=== PATIENT | male | born 1970 | race Caucasian/White ===

== ENCOUNTER 2019-09-15 02:47 | Inpatient (IN) | payer BC ==
[~2019-09-15] VITALS: Ht 182.9 cm; Wt 157.4 kg
[2019-09-15] VITALS (7 sets, daily range): BP systolic 85–123; BP diastolic 42–74; Ht 182.9 cm; Wt 157.4 kg
--- NOTE | 2019-09-15 03:00 | NUR ---
PT BROUGHT TO ED BY [facility] WITH C/O RECTAL BLEEDING SINCE 1299. PER MEDICS, PT HAD A COLONOSCOPY LAST THURSDAY WITH REMOVAL OF 5 POLYPS (1 LARGE ONE). AROUND 1300 TODAY, PT EXPERIENCED A BOWEL MOVEMENT THAT HAD BRIGHT RED BLOOD IN IT. PT DENIES RECTAL BLEEDING SINCE THE PROCEDURE BUT STATES THAT THIS AM HE DID HAVE TO STRAIN A LITTLE BIT BUT HAD A NORMAL BOWEL MOVEMENT. PT STATES THAT THROUGHOUT THE DAY HE EXPERIENCED APPROX 6 EPISODES OF DIARRHEA WITH BRIGHT RED BLOOD. PT STATES THAT THIS EVENING HE HAD A SYNCOPAL EPISODE. PT DENIES TAKING BLOOD THINNERS. PT RATES PAIN AT 2/10 AT THIS TIME. PT PLACED ON FULL CM, VITAL SIGNS STABLE. PT DENIES FEVER TODAY. PT AOX4, RESP EVEN AND UNLABORED, NO ACUTE DISTRESS NOTED.
--- NOTE | 2019-09-15 03:11 | NUR ---
DR VICTORIA AT BEDSIDE FOR MSE.
[2019-09-15 03:51] LABS: BASOPHIL % 0.2 % (0-2); PLATELET COUNT 224 x10^3mcL (130-400); RED CELL DISTRIBUTION WIDTH 13.3 % (11.5-14.5)
[2019-09-15 03:52] LABS: CALCIUM 7.9 mg/dL (8.5-10.1); CARBON DIOXIDE 28.5 mmol/L (21-32); CHLORIDE SERUM 106 mmol/L (98-107); GFR1 > 60 mL/min; GLUCOSE SERUM 153 mg/dL (74-106); POTASSIUM SERUM 3.8 mmol/L (3.5-5.1); SODIUM SERUM 140 mmol/L (136-145)
[2019-09-15 03:57] LABS: ALKALINE PHOSPHATASE 69 U/L (46-116); ALT/SGPT 40 U/L (16-63); AST/SGOT 18 U/L (15-37); BILIRUBIN TOTAL 0.3 mg/dL (0.20-1.00)
[2019-09-15 04:10] LABS: ALBUMIN 3.1 g/dL (3.4-5.0); TOTAL PROTEIN, SERUM 5.5 g/dL (6.4-8.2)
--- NOTE | 2019-09-15 04:15 | NUR ---
ASSISTED BY [facility] EMT TO PLACE PATIENT ON BEDSIDE COMMODE. LARGE AMOUNT OF BLOODY JELLY LIKE FECAL MATTER NOTED IN COMMODE. PT TOLERATED WELL. WHEN STANDING UP PT STATES "I FEEL LIKE I NEED TO LAY DOWN". PT ASSISTED BACK INTO BED. PT LAYING IN LEFT SIDE LAYING POSITION AND STATES "OH ITS GOING TO COME OUT". PT BEGAN DEFACATING A LARGE AMOUNT OF DARK RED JELLY LIKE FECAL MATTER. PT CLEANED AND PLACED IN CLEAN GOWN, CLEAN CHUCKS PLACED UNDER PT. PRIMARY RN AWARE.
[2019-09-15] MEDS ORDERED: GLUCOTROL10 MG PO (05:12)
[2019-09-15] MEDS ORDERED: LIPI20 PO (05:13)
[2019-09-15] MEDS ORDERED: GLIPIZIDE10 M2 PO (05:13)
[2019-09-15] MEDS ORDERED: METOPROLOL TART25 M1 PO (05:14)
[2019-09-15] MEDS ORDERED: MELOXICAM15 M1 PO (05:15)
[2019-09-15] MEDS ORDERED: FENOFIBRATE MI200 MG PO (05:15)
[2019-09-15] MEDS ORDERED: ESCITALOPRAM20 M1 PO (05:16)
[2019-09-15] MEDS ORDERED: GLYBURIDE5 MG PO (05:17)
[2019-09-15] MEDS ORDERED: METFORMIN HCL1000 MG PO (05:17)
[2019-09-15] MEDS ORDERED: RESTORIL15 MG PO (05:18)
[2019-09-15] MEDS ORDERED: HCTZ/LISINOPRIL1 TA2 PO (05:18)
[2019-09-15] MEDS ORDERED: NOR10 PO (05:19)
--- NOTE | 2019-09-15 05:59 | NUR ---
REPORT GIVEN TO SANDIP LANG TELE
--- NOTE | 2019-09-15 06:36 | NUR ---
PT TRANSFERRED TO TELE FLOOR ACCOMPANIED BY NURSE AND EMT. PT CONNECT TO MONITOR DURING TRANSFER. NO S/S OF DISTRESS. RESP E/U. IV SITE PATENT, NO S/S OF INFILTRATION.
--- NOTE | 2019-09-15 07:05 | NUR ---
RECIEVED PT FROM ED. PT CALM IN BED. NO DISTRESS NOTED. AT BEDSIDE. COMPLAIN OF BLOODY STOOL AFTER HE HAD HIS COLONOSCOPY DONE THURSDAY. HE STATES HE HAD 7 EPISODES AT HOME AND ONE SYNCOPE EPISODE AT HOME. WITNESS THIS EVENT AND STATED HE JUST FEEL BACK AND WAS UNCOUCIOUS FOR A COUPLE OF SECONDS. SKIN WARM AND INTACT. BED IS AT LOWEST SETTING. CALL LIGHT WITHIN REACH. WILL ENDORSE TO AM NURSE.
--- NOTE | 2019-09-15 07:30 | NUR ---
THE PATIENT HAS HAD TWO LARGE BLOODY BOWEL MOVEMENTS. PATIENT APPEARS TO BE ANXIOUS, DIZZY, PALE. PRESENT. WILL CALL .
--- NOTE | 2019-09-15 07:30 | NUR ---
A&OX4, FOLLOWS COMMANDS AND COOPERATES WELL. TELE #23, NSR. PERIPHERAL PULSES ARE PALPABLE, W/ NO SIGNS OF EDEMA. PATIENT STATES DIZZINESS WHILE STANDING AND WALKING TO BEDSIDE COMMODE. PATIENT MOST RECENT BLOOD PRESSURE IS 85/42. NOTIFIED MD OF PATIENT STATUS AND LOW BP. REFER TO OTHER NOTE FOR SPECIFIC MD ORDERS. ON RA, LUNG SOUNDS CTA BILATERALLY, 96%. NORMOACTIVE BOWEL SOUNDS, BUT FREQUENT BOWEL MOVEMENTS W/ BLOODY DIARRHEA W/ PURULENT ODOR. COLOR OF STOOL IS DARK RED. VOIDS WELL. PATIENT AMBULATES WITH MINIMAL ASSISTANCE TO BEDSIDE COMMODE DUE TO DIZZINESS. PATIENT IV SITE IS CDI. FAMILY IS PRESENT. WILL CONTINUE TO ADDRESS ANY CONCERNS AND QUESTIONS NEEDED.
--- NOTE | 2019-09-15 08:30 | NUR ---
SPOKE TO DR. ROWLAND ABOUT CURRENT PATIENT BP 85/42, FREQUENT BLOODY STOOL. WE CALLED FOR ORDERS. MD ORDERED NS BOLUS 500 ML, D5NS 100 ML/HR, ORDER SET PRNS MEDICATIONS, AND GI CONSULT DR. MURRAY.
[2019-09-15 08:46] LABS: BASOPHIL % 0.2 % (0-2); PLATELET COUNT 206 x10^3mcL (130-400)
--- NOTE | 2019-09-15 09:30 | NUR ---
DR. ROWLAND VISITED THE PATIENT AND TOLD THE PATIENT AND HIS FAMILY THE PLAN FOR HOSPITALIZATION. THE PLAN IS TO MONITOR CBC LEVELS AND REFER TO GI CONSULT DR. MURRAY FOR FURTHER ORDERS.
--- NOTE | 2019-09-15 09:43 | NUR ---
NS BOLUS 500 ML IS CURRENTLY INFUSING PER MD ORDER. WILL CHECK BP POST-BOLUS INFUSION.
--- NOTE | 2019-09-15 11:00 | NUR ---
0829: PATIENT BLOOD PRESSURE IS 85/42. MD ORDERED NS BOLUS 500 ML, AND D5NS 100 ML/HR. 0943: NS BOLUS 500 ML IS CURRENTLY INFUSING. WILL CONTINUE TO MONITOIR BLOOD PRESSURE POST-BOLUS INFUSION. 1100. BOLUS INFUSION COMPLETED. BP IS RETAKEN: 98/50.
--- NOTE | 2019-09-15 12:45 | NUR ---
PATIENT RECEIVED FLU SHOT VIA IM ON THE RIGHT SHOULDER. NO SIGNS OF ABNORMAL BLEEDING. SKIN IS CDI.
--- NOTE | 2019-09-15 18:10 | NUR ---
RECEIVED REPORT FROM SUNDAR LANG. ALL QUESTIONS AND CONCERNS ADDRESSED.
--- NOTE | 2019-09-15 18:25 | NUR ---
PATIENT RECEIVED ON UNIT ACCOPANIED BY KIRILL RN AND SUNDAR RN. PATIENT REMOVED FROM PORTABLE DIESEL BUS MECHANIC AND PLACED ON ICU DIESEL BUS MECHANIC #1. PATIENT ALERT AND ORIENTED. ABLE TO MAKE NEEDS KNOWN. PATIENT PLACED ON ICU DIESEL BUS MECHANIC WITH VITALS STABLE AT THIS TIME. BP 122/74, HR 107, RR 12, SP02 97% ON ROOM AIR. PATIENT DENIES ANY PAIN OR DISCOMFORT. AWAITING DR MURRAY AND [employer] ELECTRODES SUPERVISOR FOR COLONOSCOPY.
--- NOTE | 2019-09-15 18:39 | NUR ---
DR MURRAY CAME TO SEE THE PATIENT. CONSENT FOR COLONOSCOPY OBTAINED PER HIS ORDER. CALLED RODNEY LANG AND GAVE REPORT, HE WENT TO ICU BED # 1 FOR COLONOSCOPY TO BE DONE THERE TONIGHT. HE IS AAO TIMES 4. NO C/O PAIN. NO SOB. IV SITE TO LEFT HAND PATENT, CDI. COOPERATIVE. FAMILY PRESENT, SUPPORTIVE. HE HAD A TOTAL OF 5 BLOODY FOUL SMELLING STOOLS, 3 LARGE ONES, AND 2 SMALL ONES, ALL LOOSE.
--- NOTE | 2019-09-15 18:50 | NUR ---
NURSING CO-SIGN THE DOCUMENTATION ENTERED BY THE IP HAS BEEN REVIEWED. REVIEWED/CO-SIGNED BY: Cori Pollock DOCUMENTATION DONE BY: SUNDAR GILES RN
--- NOTE | 2019-09-15 19:15 | NUR ---
CORINE ALVAREZ (TECHNOLOGY INFUSION SPECIALIST), RODNEY AT BEDSIDE FOR COLONOSCOPY. TIME OUT TAKEN WITH ALL PARTIES IN AGREEMENT. CONSENT IN CHART. PATIENT ADMINISTERED FENTANYL 25 MCG IVP AND VERSED 2MCG FOR SEDATION. CARDIAC MONITORING SET EVERY 2 MIN AND 30 SEC. PATIENT PLACED ON BIPAP BY YVON PALOMINO. VS STABLE BP 128/63, HR 100, RR 10, SPO2 100%.
--- NOTE | 2019-09-15 19:15 | NUR ---
DR MURRAY, [facility], MYSELF AT BEDSIDE FOR COLONOSCOPY. TIME OUT TAKEN WITH ALL PATIENTS IN AGREEMENT. CONSENT IN CHART. PATIENT ADMINISTERED FENTANYL 25 MCG IVP AND VERSED 2MCG FOR SEDATION. CARDIAC MONITORING SET FOR Q 2.5 MINUTES. PATIENT PLACED ON BIPAP BY YVON PALOMINO. PATIENT IN LEFT SIDE LYING POSITION. VITALS BP 128/63, HR 100, RR 10, SPO2 100%.
--- NOTE | 2019-09-15 19:24 | NUR ---
PLACED PATIENT ONTO BIPAP FOR PROCEDURE. SETTINGS: 11/03 RATE 14 FIO2 40%. SPO2 100%.
--- NOTE | 2019-09-15 19:45 | NUR ---
MYSELF, RODNEY BOWER RN, DR. MURRAY, AND DR. ALDANA, ALL IN AGREEMENT THAT PATIENT IS OKAY TO TRANSFER BACK UP TO TELEMETRY AFTER COLONOSCOPY. WILL FOLLOW THROUGH ONCE PROCEDURE IS COMPLETED.
--- NOTE | 2019-09-15 20:50 | NUR ---
COLONOSCOPY COMPLETED BY DR MURRAY. DR MURRAY FOUND 1 PREVIOUS POLYP SITE WHICH WAS BLEEDING. SITE WAS BANDED BY DR MURRAY WITH EPI APPLIED. PATIENT RECEIVED 150 FENTANYL IVP AND 5 MG VERSED IVP. PATIENT TOLERATED PROCEDURE WITH NO S/S OF DISTRESS. PATIENT AWAKE AND ALERT WITH VITALS BP 119/71, HR 114, RR 12, SPO2 98%.
--- NOTE | 2019-09-15 21:06 | NUR ---
REPORT GIVEN TO SAADIA LANG. ALL QUESTIONS AND CONCERNS ADDRESSED. PATIENT TO BE RETURNED TO TELEMETRY 242B. FAMILY AT BEDSIDE WITH PATIENT AT THIS TIME.
--- NOTE | 2019-09-15 21:45 | NUR ---
RECIEVED PATIENT AT THIS TIME FROM COLONOSCOPY. PER REPORT FROM RODNEY LANG, BRETT PATIENT HAD ONE ACTIVE SOURCE OF BLEEDING IN COLON THAT WAS BANDED. NO ACTIVE BLEEDING FROM RECTUM NOTED. PATIENT DENIES PAIN. NO SOB ON RA SATTING 95%. CPAP SET UP FOR SLEEP APNEA. IV TO RH INFUSING WITHOUT ERYTHEMA OR INFILTRATION. ON TELE 23, NSR 84. PATIENT ORIENTED TO ROOM AND USE OF CALL LIGHT. BEDSIDE TABLE AND CALL LIGHT WITHIN REACH.
--- NOTE | 2019-09-15 21:53 | NUR ---
PT TAKEN UPSTAIRS TO TELE 242 B. NURSE SAADIA MADE AWARE. PT TAKEN ON BED BY FRANCIS, MANUFACTURING SPECIALIST, AND PRECIOUS LYONS. PT CONNECTED TO SPIRITUAL MINISTER. RT MADE AWARE OF TRANSFER, TO BE READY TO PLACE PATIENT ON BIPAP.
--- NOTE | 2019-09-15 22:00 | NUR ---
PATIENT TRANSFERED FROM ICU 1 TO ROOM 242B WITH NO INCIDENT. PLACED ON CPAP FOR THE NIGHT OF CPAP 5 FIO2 28%.
--- NOTE | 2019-09-15 22:50 | NUR ---
PATIENT'S HEMATOCRIT IS 21. WILL TRANSUSE 1 UNIT OF PRBS AFTER IRON IS DONE TRANSFUSING.
--- NOTE | 2019-09-16 00:09 | NUR ---
IRON INFUSION IS COMPLETE. PATIENT PRE-MEDICATED WITH BENADRYL AND TYLENOL FOR BLOOD TRANSFUSION AT THSI TIME.
--- NOTE | 2019-09-16 00:40 | NUR ---
BLOOD TRANSFUSION INITIATED 15 MINS AGO AT 0025. PRE AND POST VITALS TAKEN, BOTH WNL, NO SYMPTOMS OR SIGNS OF TRANSFUSION REACTION. PRBC RUNNING AT 100 ML/HR.
[2019-09-16 05:05] VITALS: BP 152/83
--- NOTE | 2019-09-16 05:29 | NUR ---
PATIENT OFF BIPAP WHEN ENTERED ROOM. STILL SLEEPING. SPO2 ON ROOM AIR 95.
--- NOTE | 2019-09-16 06:26 | NUR ---
PATIENT REPORTED SLEEPING WELL. DENIES PAIN. NO SOB ON RA. IV TO LH INFUSING WITHOUT ERYTHEMA OR INFILTRATION. CALL LIGHT AND BEDSIDE TABLE WITHIN REACH. NO BLOODY STOOLS OR RECTAL BLEEDING THIS SHIFT. WILL ENDORSE CARE TO DAYSHIFT NURSE.
--- NOTE | 2019-09-16 07:00 | NUR ---
RECEIVED PT FROM AIR FORCE PILOT NURSE. PT RESTING INBED, AOX4, RESP E/U ON RA. DENIES DIZZINESS, ABD PAIN OR N/V, NO ACUTE DISTRESS NOTED. ON TELE 23 SHOWING NSR, HR: 66. IV TO LH W/ NO SIGNS OF INFILTRATION, IVF INFUSING WELL. BED IN LOWEST POSITION AND CALL LIGHT WITHIN REACH. WILL CONTINUE TO MONITOR.
[2019-09-16 07:35] VITALS: BP 131/53
[2019-09-16 09:38] LABS: BASOPHIL % 0.3 % (0-2); PLATELET COUNT 211 x10^3mcL (130-400)
[2019-09-16 09:42] LABS: RED CELL DISTRIBUTION WIDTH 14.7 % (11.5-14.5)
[2019-09-16 09:45] LABS: CALCIUM 7.7 mg/dL (8.5-10.1); CARBON DIOXIDE 26.7 mmol/L (21-32); CHLORIDE SERUM 106 mmol/L (98-107); GFR1 > 60 mL/min; GLUCOSE SERUM 174 mg/dL (74-106); POTASSIUM SERUM 3.3 mmol/L (3.5-5.1); SODIUM SERUM 142 mmol/L (136-145)
--- NOTE | 2019-09-16 12:18 | NUR ---
PT RESTING IN BED. AOX4, RESP E/U ON RA. DENIES DIZZINESS, SOB OR ABD PAIN AT THIS TIME, NO ACUTE DISTRESS NOTED. BED IN LOWEST POSITION AND CALL LIGHT WITHIN REACH. FAMILY AT BEDSIDE. WILL CONTINUE TO MONITOR.
[2019-09-16 15:58] VITALS: BP 112/62
--- NOTE | 2019-09-16 18:23 | NUR ---
DISCHARGE DONE, REVIEWED VISIT SUMMARY, EDUCATIONAL PACKET AND FOLLOW UP INSTRUCTIONS W/ PT. PT AOX4, RESP E/U ON RA, VS STABLE, DENIES PAIN AT THIS TIME. IV TO L HAND REMOVED, CATH INTACT, GAUZE DRESSING APPLIED. PT AMBULATORY TO [facility], ESCORTED BY RONA LINDA W/ NO ACUTE INCIDENCE.
== END 2019-09-16 18:25 | disposition home or self-care (01) | DRG 920 ==
LOC: ED 02:47 → MU 05:16 → EDBEDREQ 05:16 → DU 05:16 → MU 06:02 → DU 06:17 → IC 18:30 → DU 21:57 → IC 09-16 02:30 → MU 09-16 02:37
PROVIDERS: Internal Medicine Gastroenterology; Specialist; ADMIT Internal Medicine
PROC: 0W3P8ZZ Control Bleeding in Gastrointestinal Tract, Via Natural or Artificial Opening Endoscopic (ICD-10-PCS; 2019-09-15 19:00)
PROC: 30233N1 Transfusion of Nonautologous Red Blood Cells into Peripheral Vein, Percutaneous Approach (ICD-10-PCS; principal; 2019-09-16)
DX: K91.840 Postprocedural hemorrhage of a digestive system organ or structure following a digestive system procedure (principal); Z68.42 Body mass index [BMI] 45.0-49.9, adult; E66.2 Morbid (severe) obesity with alveolar hypoventilation; E44.0 Moderate protein-calorie malnutrition; D50.0 Iron deficiency anemia secondary to blood loss (chronic); E11.65 Type 2 diabetes mellitus with hyperglycemia; I10 Essential (primary) hypertension; F41.9 Anxiety disorder, unspecified; E78.5 Hyperlipidemia, unspecified; Z87.820 Personal history of traumatic brain injury; Z79.84 Long term (current) use of oral hypoglycemic drugs; Z88.8 Allergy status to other drugs, medicaments and biological substances; Z71.3 Dietary counseling and surveillance; Z90.49 Acquired absence of other specified parts of digestive tract; Y83.8 Other surgical procedures as the cause of abnormal reaction of the patient, or of later complication, without mention of misadventure at the time of the procedure
CPT/HCPCS: 45378; 82962; 90658; C9113; G0378; J0171; J1200; J2250; J2916; J3010; J7030; J7040; J7042; P9016; Q0092